=== PATIENT | female | born 1985 | race Caucasian/White ===

== ENCOUNTER 2016-10-20 20:55 | Emergency (ER) | payer MEDICAID ==
[2016-10-20 21:02] VITALS: BP 121/81; PULSE 103; RESP 20; TEMP 98.6; O2SAT 100
--- NOTE | 2016-10-20 21:28 | C.PDOC ---
Time Seen by Provider: 10/20/16 21:07 Chief Complaint (Nursing): ENT Problem Past Medical History Vital Signs: Last Vital Signs Temp 98.6 F 10/20/16 20:57 Pulse 103 H 10/20/16 20:57 Resp 20 10/20/16 20:57 BP 121/81 10/20/16 20:57 Pulse Ox 100 10/20/16 20:57 - Social History Hx Tobacco Use: Yes Hx Alcohol Use: Yes Hx Substance Use: No - Immunization History Hx Influenza Vaccination: No ED Course And Treatment O2 Sat by Pulse Oximetry: 100 Disposition Counseled Patient/Family Regarding: Diagnosis, Need For Followup, Rx Given - Disposition Referrals: [facility] [Outside] Disposition: HOME/ ROUTINE Disposition Time: 21:26 Condition: STABLE Additional Instructions: Please increase PO fluids Take medications as directed May gargle with warm salt water / Chloraseptic spray as needed Follow up in clinic Return to ER if worse Prescriptions: Ibuprofen [Motrin] 600 mg PO Q6H #30 tab Penicillin VK [Pen-Vee K] 2 tab PO BID #28 tab
--- NOTE | 2016-10-20 21:32 | C.PDOC ---
History Of Present Illness 31 y/o female presents to the ED with complains of sore throat and pain on swallowing for the past couple days. Pt also reports subjective fever. Pt denies throat swelling or SOB, vomiting, diarrhea or any other complaints. Time Seen by Provider: 10/20/16 21:07 Chief Complaint (Nursing): ENT Problem History Per: Patient History/Exam Limitations: no limitations Onset/Duration Of Symptoms: Days Current Symptoms Are (Timing): Still Present Location Of Pain: Throat Sick Contacts (Context): None Associated Symptoms: Fever, Sore Throat. denies: Cough, Vomiting, Diarrhea Severity: Mild Recent travel outside of the [place]: No Past Medical History Reviewed: Historical Data, Nursing Documentation, Vital Signs Vital Signs: Last Vital Signs Temp 98.6 F 10/20/16 20:57 Pulse 103 H 10/20/16 20:57 Resp 20 10/20/16 20:57 BP 121/81 10/20/16 20:57 Pulse Ox 100 10/20/16 21:35 Family History: States: Unknown Family Hx - Social History Hx Tobacco Use: Yes Hx Alcohol Use: Yes Hx Substance Use: No - Immunization History Hx Influenza Vaccination: No Review Of Systems Except As Marked, All Systems Reviewed And Found Negative. Constitutional: Positive for: Fever ENT: Positive for: Throat Pain. Negative for: Throat Swelling Respiratory: Negative for: Shortness of Breath Gastrointestinal: Negative for: Vomiting, Diarrhea Physical Exam - Physical Exam Appears: Non-toxic, No Acute Distress Skin: Warm, Dry, No Rash Head: Atraumatic, Normacephalic Ear(s): Bilateral: Normal Nose: Normal Oral Mucosa: Moist Throat: Erythema, Exudate (hypopharynx) Neck: Normal, Normal ROM, Supple, Other (no swelling) Chest: Symmetrical Cardiovascular: Rhythm Regular, No Murmur Respiratory: Normal Breath Sounds, No Rales, No Rhonchi, No Wheezing Extremity: Normal ROM Extremity: Bilateral: Atraumatic Neurological/Psych: Oriented x3, Normal Speech ED Course And Treatment O2 Sat by Pulse Oximetry: 100 (room air) Pulse Ox Interpretation: Normal Disposition Counseled Patient/Family Regarding: Diagnosis, Need For Followup, Rx Given - Disposition Referrals: [facility] [Outside] Disposition: HOME/ ROUTINE Disposition Time: 21:25 Condition: STABLE Additional Instructions: Please increase PO fluids Take medications as directed May gargle with warm salt water / Chloraseptic spray as needed Follow up in clinic Return to ER if worse Prescriptions: Ibuprofen [Motrin] 600 mg PO Q6H #30 tab Penicillin VK [Pen-Vee K] 2 tab PO BID #28 tab Instructions: Pharyngitis (ED) Forms: Work Excuse - Clinical Impression Clinical Impression: Pharyngitis - PA / [employer] / Resident Statement MD/DO has reviewed & agrees with the documentation as recorded. - Scribe Statement The provider has reviewed the documentation as recorded by the Scribkavitha Menon All medical record entries made by the Loraine were at my direction and personally dictated by me. I have reviewed the chart and agree that the record accurately reflects my personal performance of the history, physical exam, medical decision making, and the department course for this patient. I have also personally directed, reviewed, and agree with the discharge instructions and disposition.
== END 2016-10-20 21:40 | disposition home or self-care (01) ==
LOC: C.ER 20:55
DX: J02.9 Acute pharyngitis, unspecified (principal)